=== PATIENT | female | born 1950 | race Caucasian/White ===

== ENCOUNTER → 2018-07-30 15:26 | Outpatient (CLI) | payer MEDICARE, OTHER, SELFPAY | PROVIDERS: Referring Provider Otolaryngology; Visit Provider Otolaryngology | DX: J02.9 Acute pharyngitis, unspecified (principal) | CPT/HCPCS: 87070 ==

== ENCOUNTER → 2019-01-03 08:14 | Outpatient (CLI) | payer MEDICARE, OTHER, SELFPAY ==
--- NOTE | 2019-01-03 08:18 | CT_ITS ---
STUDY: CT BRAIN AND SINUSES WITHOUT CONTRAST REASON FOR EXAM: Female, 68 years old. Chronic sinusitis. RADIATION DOSAGE (If Supplied By Facility): CTDIvol = ( 33.06 ) mGy, DLP = ( 776.00 ) mGycm TECHNIQUE: Transaxial CT imaging of the brain was performed without administration of contrast. Individualized dose optimization techniques were used for this CT. COMPARISON: No relevant priors. FINDINGS: CT BRAIN Normal soft tissue structures. Normal calvarium. Normal size ventricles and extra-axial spaces for the patient's age. Normal white matter tracts of the cerebral hemispheres. Normal basal ganglia and thalami. Normal brainstem. Normal cerebellum. There is no intracranial hemorrhage. There are no findings of an acute ischemic infarction. CT SINUSES Post Surgical Changes: None. Frontal Sinus and Recess: Normal aeration without mucosal inflammatory disease. Ethmoidal Sinuses: Mucosal thickening of the ethmoid sinuses bilaterally. Maxillary Sinuses: Partial opacification of the maxillary sinuses bilaterally. Ostiomeatal Complex: Clear. Sphenoid Sinus: Normal aeration without mucosal inflammatory disease. Sphenoethmoidal Recess: Clear. Nasal Turbinate (Right): Middle Turbinate (Right): Normal. Middle Turbinate (Left): Normal. Inferior Turbinate (Right): Normal. Inferior Turbinate (Left): Normal. Nasal Septum: Midline. Nasal Airway: Clear. Cribiform Plate / Anterior Cranial Fossa: Normal. Orbits: Normal. CT/Sinus/Facial Bone IMPRESSION: Partial opacification of the maxillary sinuses and mucosal thickening of the ethmoid sinuses bilaterally. Electronically Signed: Naif Milligan, at 14:47 EDT , Service support ,
== END ==
PROVIDERS: Family Provider Internal Medicine; PCP Internal Medicine; Referring Provider Otolaryngology; Visit Provider Otolaryngology
DX: J32.9 Chronic sinusitis, unspecified (principal); R51 Headache
CPT/HCPCS: 70486